=== PATIENT | female | born 1945 | race Caucasian/White ===

== ENCOUNTER 2017-11-21 08:50 | Inpatient (IN) | payer MEDICARE ==
[~2017-11-21] VITALS: Ht 160 cm; Wt 122.5 kg
[2017-11-21] MEDS: normal saline 1000ml 1,000 ML IV SCH ×2 (02:55→16:22)
[2017-11-21] MEDS ORDERED: normal saline 1000ML IV soln IV ONE (09:10)
[2017-11-21 09:59] LABS: BASOPHILS % (AUTO) 0.1 % (0-1); EOSINOPHILS % (AUTO) 0.1 % (0-6); HEMATOCRIT 40.3 % (35.0-45.0); HEMOGLOBIN 13.6 g/dl (12.0-16.0); LYMPHOCYTES # (AUTO) 1.2 X10'3 (1.1-4.8); LYMPHOCYTES % (AUTO) 4.7 % (21-51); MEAN CORPUSCULAR HEMOGLOBIN 26.3 PG (27.0-31.0); MEAN CORPUSCULAR HGB CONC 33.8 % (33.0-36.5); MEAN CORPUSCULAR VOLUME 77.8 FL (78-98); MEAN PLATELET VOLUME 7.5 FL (7.4-10.4); MONOCYTES # (AUTO) 1.3 X10'3 (0-0.9); MONOCYTES % (AUTO) 5.4 % (2-12); NEUTROPHILS # (AUTO) 22.2 X10'3 (1.8-7.7); NEUTROPHILS % (AUTO) 89.7 % (42-75); PLATELET COUNT 271 X10'3 (140-440); RED BLOOD COUNT 5.18 X10'6 (4.20-5.60); RED CELL DISTRIBUTION WIDTH 14.4 % (11.5-14.5); WHITE BLOOD COUNT 24.7 X10'3 (4.5-11.0)
[2017-11-21 10:11] LABS: PARTIAL THROMBOPLASTIN TIME 34 SECONDS (22-32); PROTHROMBIN TIME 10.8 SECONDS (9.0-12.0)
[2017-11-21 10:14] LABS: CLARITY,URINE SLIGHTLY CLOUDY (Clear); COLOR,URINE YELLOW (Yellow); GLUCOSE, URINE NEGATIVE (Neg); KETONES,URINE NEGATIVE (Neg); LEUKOCYTE ESTERASE ,URINE SMALL (Neg); NITRITES, URINE NEGATIVE (Neg); OCCULT BLOOD,URINE NEGATIVE (Neg); PH,URINE 5.5 (4.8-8.0); PROTEIN,URINE 30 mg/dl (Neg); UROBILINOGEN,URINE >=8.0 E.U/dL (0.2-1.0)
[2017-11-21 10:19] LABS: UA COLLECTION TYPE CLN CATCH MIDSTREAM
[2017-11-21 10:21] LABS: BACTERIA,URINE 1+ /HPF (Neg); MUCUS STRANDS FEW /LPF (Neg); RBC,URINE 0-2 /HPF (0-2); SQUAMOUS EPITHELIAL CELL,UR MANY /LPF (FEW)
[2017-11-21 10:24] LABS: ALANINE AMINOTRANSFERASE 16 U/L (12-78); ALBUMIN 2.8 G/DL (3.4-5.0); ALBUMIN/GLOBULIN RATIO 0.5 (1.1-1.5); ALKALINE PHOSPHATASE 85 IU/L (46-116); ANION GAP 10 (8-16); ASPARTATE AMINO TRANSFERASE 14 U/L (10-37); BLOOD UREA NITROGEN 17 MG/DL (7-18); BUN/CREATININE RATIO 15.3 (6.6-38.0); CALCIUM 8.9 MG/DL (8.5-10.1); CHLORIDE 96 MMOL/L (99-107); CREATININE 1.11 MG/DL (0.40-0.90); GLUCOSE 202 MG/DL (70-104); MAGNESIUM 1.5 MG/DL (1.5-2.4); POTASSIUM 4.1 MMOL/L (3.5-5.1); SODIUM 133 MMOL/L (135-145); TOTAL CARBON DIOXIDE 26.7 MMOL/L (24-32); eGFR 49 ML/MIN
[2017-11-21] MEDS ORDERED: cefazolin 1gm/NS 100mL 100 ML IV ONE (10:55)
[2017-11-21] MEDS ORDERED: clindamycin 600mg/D5W 50ml 50 ML IV ONE (10:55)
[2017-11-21] MEDS ORDERED: morphine 4 MG/ML inj SYRINge IV PRN (13:40)
[2017-11-21] MEDS ORDERED: ondansetron/PF 4mg/2ml inj IV PRN (13:40)
[2017-11-21] MEDS ORDERED: magnesium hydroxide 30ml (MOM) UD suspension PO PRN (13:40)
[2017-11-21] MEDS ORDERED: mag hydrox/Alum hydrox/simeth 30ml oral suspension PO PRN (13:40)
[2017-11-21 15:30] VITALS: BP_SYST 108; BP_SYST 98; BP_DIAS 52; BP_DIAS 57; BP_DIAS 64
[2017-11-21] MEDS: cefepime 2g/NS 100ml ADVANTAGE 100 ML IV SCH ×2 (16:22→23:58)
[2017-11-21] MEDS: metroNIDAZOLE 500mg tablet PO SCH ×2 (16:22→23:59)
[2017-11-21] MEDS ORDERED: dextrose 50%-water 50ml dispensing syringe IV PRN ×2 (18:25)
[2017-11-21] MEDS ORDERED: dextrose ORAL solution 15 GM/59 ML bottle PO PRN ×2 (18:25)
[2017-11-21] MEDS ORDERED: glucagon, human recombinant 1mg kit SUBCUT PRN (18:25)
[2017-11-21 19:00] VITALS: BP 121/50
[2017-11-21] MEDS: insulin glargine (Lantus) pen - multi-dose SQ SCH (21:00)
[2017-11-21] MEDS: lactobacillus rhamnosus 10,000 MMU CELLS/CAPSULE PO SCH (21:16)
[2017-11-21] MEDS: HYDROcodone/acetaminophen 5mg/325mg tablet PO PRN (21:18)
[2017-11-21] MEDS: heparin, porcine 5000 units/ml vial SQ SCH (21:19)
[2017-11-21] MEDS ORDERED: CITA20TA11 PO (22:51)
[2017-11-21] MEDS ORDERED: EZET10TA14 PO (22:51)
[2017-11-21] MEDS ORDERED: TRIA1TAB3 PO (22:51)
[2017-11-21] MEDS ORDERED: ALBU8.5H8 INH (22:51)
[2017-11-21] MEDS ORDERED: LANTUS SQ (22:51)
[2017-11-21] MEDS ORDERED: PHEN15SP INH (22:51)
[2017-11-21] MEDS ORDERED: LANS15CA10 PO (22:51)
[2017-11-21] MEDS ORDERED: BENA40TA2 PO (22:51)
[2017-11-21] MEDS ORDERED: METF500T PO (22:51)
[2017-11-21] MEDS ORDERED: ASPI81TA52 PO (22:51)
[2017-11-22] VITALS: BP 107/54
[2017-11-22 05:41] LABS: BASOPHILS % (AUTO) 0.1 % (0-1); EOSINOPHILS # (AUTO) 0.3 X10'3 (0-0.9); EOSINOPHILS % (AUTO) 1.5 % (0-6); HEMATOCRIT 36.2 % (35.0-45.0); LYMPHOCYTES # (AUTO) 1.6 X10'3 (1.1-4.8); LYMPHOCYTES % (AUTO) 6.9 % (21-51); MEAN CORPUSCULAR HEMOGLOBIN 26.5 PG (27.0-31.0); MEAN CORPUSCULAR HGB CONC 33.3 % (33.0-36.5); MEAN CORPUSCULAR VOLUME 79.5 FL (78-98); MEAN PLATELET VOLUME 7.5 FL (7.4-10.4); MONOCYTES # (AUTO) 1.2 X10'3 (0-0.9); MONOCYTES % (AUTO) 5.3 % (2-12); NEUTROPHILS # (AUTO) 20.1 X10'3 (1.8-7.7); NEUTROPHILS % (AUTO) 86.2 % (42-75); PLATELET COUNT 229 X10'3 (140-440); RED BLOOD COUNT 4.55 X10'6 (4.20-5.60); RED CELL DISTRIBUTION WIDTH 14.2 % (11.5-14.5); WHITE BLOOD COUNT 23.3 X10'3 (4.5-11.0)
[2017-11-22 05:54] LABS: ALBUMIN 2.1 G/DL (3.4-5.0); ANION GAP 11 (8-16); BLOOD UREA NITROGEN 16 MG/DL (7-18); BUN/CREATININE RATIO 17.2 (6.6-38.0); CALCIUM 7.7 MG/DL (8.5-10.1); CHLORIDE 102 MMOL/L (99-107); CREATININE 0.93 MG/DL (0.40-0.90); GLUCOSE 96 MG/DL (70-104); POTASSIUM 3.8 MMOL/L (3.5-5.1); SODIUM 138 MMOL/L (135-145); TOTAL CARBON DIOXIDE 25.4 MMOL/L (24-32); eGFR 60 ML/MIN
[2017-11-22 06:45] LABS: HEMOGLOBIN A1C 7.8 % (4.5-6.2)
[2017-11-22 07:33] VITALS: BP 111/55
[2017-11-22] MEDS: lactobacillus rhamnosus 10,000 MMU CELLS/CAPSULE PO SCH ×2 (09:11→21:48)
[2017-11-22] MEDS: metroNIDAZOLE 500mg tablet PO SCH ×3 (09:11→23:55)
[2017-11-22] MEDS: heparin, porcine 5000 units/ml vial SQ SCH ×2 (09:12→21:48)
[2017-11-22] MEDS: cefepime 2g/NS 100ml ADVANTAGE 100 ML IV SCH ×3 (09:12→23:55)
[2017-11-22] MEDS: normal saline 1000ml 1,000 ML IV SCH (09:39)
[2017-11-22 11:30] VITALS: BP 106/57
[2017-11-22] MEDS: HYDROcodone/acetaminophen 5mg/325mg tablet PO PRN (16:36)
[2017-11-22 19:00] VITALS: BP 108/54
[2017-11-22] MEDS: acetaminophen 325mg tablet PO PRN (19:40)
[2017-11-22] MEDS: insulin glargine (Lantus) pen - multi-dose SQ SCH (21:58)
[2017-11-22 23:00] VITALS: BP 119/61
[2017-11-23] VITALS (9 sets, daily range): BP systolic 83–214; BP diastolic 45–125
[2017-11-23] MEDS ORDERED: VANCOMYCIN LEVEL IV ONE (04:30)
[2017-11-23 05:36] LABS: BASOPHILS % (AUTO) 0.2 % (0-1); EOSINOPHILS % (AUTO) 0 % (0-6); HEMOGLOBIN 11.6 g/dl (12.0-16.0); LYMPHOCYTES % (AUTO) 4.1 % (21-51); MEAN CORPUSCULAR HEMOGLOBIN 26.5 PG (27.0-31.0); MEAN CORPUSCULAR HGB CONC 33.3 % (33.0-36.5); MEAN CORPUSCULAR VOLUME 79.8 FL (78-98); MEAN PLATELET VOLUME 7.7 FL (7.4-10.4); MONOCYTES # (AUTO) 1.2 X10'3 (0-0.9); MONOCYTES % (AUTO) 4.8 % (2-12); NEUTROPHILS # (AUTO) 22.1 X10'3 (1.8-7.7); NEUTROPHILS % (AUTO) 90.9 % (42-75); PLATELET COUNT 250 X10'3 (140-440); RED BLOOD COUNT 4.38 X10'6 (4.20-5.60); WHITE BLOOD COUNT 24.3 X10'3 (4.5-11.0)
[2017-11-23 05:50] LABS: ANION GAP 11 (8-16); BLOOD UREA NITROGEN 19 MG/DL (7-18); BUN/CREATININE RATIO 18.4 (6.6-38.0); CALCIUM 7.9 MG/DL (8.5-10.1); CHLORIDE 102 MMOL/L (99-107); CREATININE 1.03 MG/DL (0.40-0.90); GLUCOSE 186 MG/DL (70-104); POTASSIUM 3.7 MMOL/L (3.5-5.1); SODIUM 135 MMOL/L (135-145); TOTAL CARBON DIOXIDE 22.5 MMOL/L (24-32); VANCOMYCIN,TROUGH 12.8 UG/ML (6.0-14.0); eGFR 53 ML/MIN
[2017-11-23] MEDS: lactobacillus rhamnosus 10,000 MMU CELLS/CAPSULE PO SCH ×2 (07:43→19:27)
[2017-11-23] MEDS: heparin, porcine 5000 units/ml vial SQ SCH ×2 (07:43→19:39)
[2017-11-23] MEDS: cefepime 2g/NS 100ml ADVANTAGE 100 ML IV SCH ×2 (07:43→16:52)
[2017-11-23] MEDS: metroNIDAZOLE 500mg tablet PO SCH ×2 (07:43→16:52)
[2017-11-23] MEDS: insulin Lispro (HumaLOG) vial - multi-dose SQ SCH ×3 (08:49→19:30)
[2017-11-23] MEDS ORDERED: albuterol 2.5 MG/3 ML nebule NEB PRN (11:35)
[2017-11-23] MEDS ORDERED: TETanus/Pertussis (Acell)/Diphther VAC/PF (Tdap-Adult) 0.5ml syringe IMVAC ONE (11:55)
[2017-11-23] MEDS: citalopram 20mg tablet PO SCH (12:44)
[2017-11-23] MEDS ORDERED: iohexol 300mg/ml 100ml inj. ONE (12:46)
[2017-11-23] MEDS: vancomycin/NS 1 GM ADD-VANTAGE 250 ML X 1 DOSE IV SCH ×2 (13:18→20:57)
[2017-11-23] MEDS: sodium bicarbonate (8.4%) inj. 100 MEQ in sodium chloride 0.45% 900 ML IV SCH (16:52)
[2017-11-23] MEDS: acetylcysteine 200 MG/ml 4ml vial PO SCH (19:27)
[2017-11-23] MEDS: lisinopril 20mg tablet PO SCH (19:36)
[2017-11-23] MEDS ORDERED: insulin glargine (Lantus) pen - multi-dose SQ SCH (20:00)
[2017-11-23] MEDS ORDERED: ringers solution, lacted 1,000 ML IV SCH (20:38)
[2017-11-23] MEDS ORDERED: ondansetron/PF 4mg/2ml inj IV PRN (20:40)
[2017-11-23] MEDS ORDERED: morphine 4 MG/ML inj SYRINge IV PRN ×2 (20:40)
[2017-11-23] MEDS ORDERED: fentaNYL/PF 50MCG/1 ML 2ML syringe IV PRN ×2 (20:40)
[2017-11-23] MEDS ORDERED: hydrALAZINE 20mg/ml inj. IV PRN (20:40)
[2017-11-23] MEDS: aspirin 81mg tablet.DR PO SCH (21:00)
[2017-11-23] MEDS: insulin glargine (Lantus) pen - multi-dose SQ SCH (21:09)
[2017-11-23] MEDS ORDERED: LIDOcaine 2% (20mg/ml) 5ml vial ONE (21:17)
[2017-11-23] MEDS ORDERED: propofol inj 20 ML IV ONE (21:17)
[2017-11-23] MEDS ORDERED: fentaNYL/PF 50MCG/1 ML 2ML syringe ONE (21:17)
[2017-11-23] MEDS ORDERED: midazolam 2 mg/2 ml injection ONE (21:17)
[2017-11-23] MEDS ORDERED: ondansetron/PF 4mg/2ml inj ONE (21:18)
[2017-11-23] MEDS ORDERED: sevoflurane 250ml liquid IH ONE (21:20)
[2017-11-23] MEDS ORDERED: succinylcholine 20mg/ml inj IV ONE (21:27)
[2017-11-23] MEDS ORDERED: glycopyrrolate 0.2mg/ml inj ONE (22:42)
[2017-11-23] MEDS ORDERED: naloxone 0.4 mg/ml inj IV PRN (22:55)
[2017-11-23] MEDS ORDERED: CADD PCA waste documentation MC PRN (22:55)
[2017-11-23] MEDS ORDERED: metoclopramide 5 mg/ml inj IV PRN (22:55)
[2017-11-23] MEDS: morphine/NS 5 mg/ml CADD 50 ML IV SCH (23:00)
[2017-11-23] MEDS ORDERED: naloxone 0.4 mg/ml inj ONE (23:10)
[2017-11-23] MEDS: labetalol 5mg/ml 20ml inj. IV PRN ×2 (23:10→23:25)
[2017-11-23 23:20] LABS: ABG BASE EXCESS -8.6 mmol/L (-2.0-3.0); ABG HCO3 20.7 mmol/L (22.0-26.0); ABG OXYGEN SATURATION 97.8 % (95-98); ABG PH (T) 7.155 (7.350-7.450); ABG PO2 (T) 141.4 mmHg (83-108); FCOHb 0.2 % (0.5-1.5); FLOW 15 L/min; FMetHb 0.3 % (0.3-1.12); FO2Hb 97.3 % (94-100); RESPIRATORY RATE (OBSERVED) 26 b/min; TOTAL HEMOGLOBIN 12.7 G/dl (12.0-16.0)
[2017-11-24] VITALS (24 sets, daily range): BP systolic 89–119; BP diastolic 54–71
[2017-11-24] MEDS: morphine/NS 5 mg/ml CADD 50 ML IV SCH ×11 (01:00→23:00)
[2017-11-24] MEDS ORDERED: amiodarone/D5 360MG/200ML BAG 200 ML IV SCH (01:18)
[2017-11-24] MEDS ORDERED: amiodarone 150mg/dext, iso-os 100 ML IV ONE ×3 (01:20→01:42)
[2017-11-24] MEDS ORDERED: piperacillin/tazo 3.375gm/50ml 50 ML IV ONE (01:39)
[2017-11-24] MEDS ORDERED: amiodarone/D5 450MG/250ML BAG 250 ML IV ONE (01:42)
[2017-11-24] MEDS: sodium bicarbonate (8.4%) inj. 100 MEQ in sodium chloride 0.45% 900 ML IV SCH ×5 (01:52→13:39)
[2017-11-24] MEDS: metroNIDAZOLE 500mg tablet PO SCH ×3 (01:52→15:50)
[2017-11-24] MEDS: piperacillin/tazo 3.375gm/50ml 50 ML IV SCH ×4 (01:53→19:53)
[2017-11-24 02:27] LABS: ALBUMIN 1.8 G/DL (3.4-5.0); ANION GAP 13 (8-16); BLOOD UREA NITROGEN 20 MG/DL (7-18); CALCIUM 7.7 MG/DL (8.5-10.1); CHLORIDE 102 MMOL/L (99-107); CREATININE 1.05 MG/DL (0.40-0.90); GLUCOSE 202 MG/DL (70-104); MAGNESIUM 1.6 MG/DL (1.5-2.4); PHOSPHORUS 3.2 MG/DL (2.3-4.5); POTASSIUM 3.9 MMOL/L (3.5-5.1); SODIUM 136 MMOL/L (135-145); TOTAL CARBON DIOXIDE 21.5 MMOL/L (24-32); eGFR 52 ML/MIN
[2017-11-24] MEDS: amiodarone/D5 450MG/250ML BAG 250 ML IV SCH ×2 (02:52→12:59)
[2017-11-24 02:57] LABS: BASOPHILS % (AUTO) 0.2 % (0-1); EOSINOPHILS % (AUTO) 0 % (0-6); HEMATOCRIT 34.3 % (35.0-45.0); HEMOGLOBIN 11.4 g/dl (12.0-16.0); LYMPHOCYTES # (AUTO) 1.2 X10'3 (1.1-4.8); LYMPHOCYTES % (AUTO) 5.4 % (21-51); MEAN CORPUSCULAR HEMOGLOBIN 26.2 PG (27.0-31.0); MEAN CORPUSCULAR HGB CONC 33.1 % (33.0-36.5); MEAN CORPUSCULAR VOLUME 79.2 FL (78-98); MEAN PLATELET VOLUME 8.1 FL (7.4-10.4); MONOCYTES # (AUTO) 1.2 X10'3 (0-0.9); MONOCYTES % (AUTO) 5.8 % (2-12); NEUTROPHILS % (AUTO) 88.6 % (42-75); PLATELET COUNT 275 X10'3 (140-440); RED BLOOD COUNT 4.34 X10'6 (4.20-5.60); RED CELL DISTRIBUTION WIDTH 14.2 % (11.5-14.5); WHITE BLOOD COUNT 21.4 X10'3 (4.5-11.0)
[2017-11-24] MEDS: vancomycin/NS 1 GM ADD-VANTAGE 250 ML X 1 DOSE IV SCH ×3 (05:10→21:29)
[2017-11-24] MEDS: triamterene/HCTZ 37.5/25mg tablet PO SCH (07:52)
[2017-11-24] MEDS: lactobacillus rhamnosus 10,000 MMU CELLS/CAPSULE PO SCH ×2 (07:52→19:50)
[2017-11-24] MEDS: citalopram 20mg tablet PO SCH (07:52)
[2017-11-24] MEDS: acetylcysteine 200 MG/ml 4ml vial PO SCH ×2 (07:52→21:27)
[2017-11-24] MEDS: ezetimibe 10mg tablet PO SCH (07:52)
[2017-11-24] MEDS: heparin, porcine 5000 units/ml vial SQ SCH ×2 (07:52→19:52)
[2017-11-24] MEDS: lisinopril 20mg tablet PO SCH ×2 (08:00→19:50)
[2017-11-24 09:06] LABS: PLATELET ESTIMATE NORMAL; TOTAL CELLS COUNTED 100
[2017-11-24 09:07] LABS: TOXIC VACUOLATION 1+
[2017-11-24 09:08] LABS: BURR CELLS 3+; POIKILOCYTOSIS 2+; POLYCHROMASIA FEW
[2017-11-24 09:10] LABS: SPHEROCYTES 1+
[2017-11-24] MEDS: acetaminophen 325mg tablet PO PRN ×2 (09:23→23:35)
[2017-11-24] MEDS ORDERED: iohexol 350MG/ML 100ml bottle IV ONE (11:10)
[2017-11-24] MEDS: MESSAGE TO NURSING PO SCH (11:30)
[2017-11-24] MEDS ORDERED: VANCOMYCIN LEVEL IV NR (12:30)
[2017-11-24] MEDS: insulin Lispro (HumaLOG) vial - multi-dose SQ SCH ×2 (13:52→20:04)
[2017-11-24] MEDS: clindamycin-Cleocin 900mg/D5W 50 ML IV SCH ×2 (15:50→23:36)
[2017-11-24] MEDS: Dakins solution (1/4 strength) 473ml solution TP SCH (19:50)
[2017-11-24] MEDS: insulin glargine (Lantus) pen - multi-dose SQ SCH (21:25)
[2017-11-24] MEDS: aspirin 81mg tablet.DR PO SCH (21:29)
[2017-11-25] VITALS (28 sets, daily range): BP systolic 83–119; BP diastolic 52–70
[2017-11-25] MEDS: morphine/NS 5 mg/ml CADD 50 ML IV SCH ×12 (01:00→23:00)
[2017-11-25] MEDS: sodium bicarbonate (8.4%) inj. 100 MEQ in sodium chloride 0.45% 900 ML IV SCH (01:04)
[2017-11-25] MEDS: piperacillin/tazo 3.375gm/50ml 50 ML IV SCH ×4 (02:02→20:21)
[2017-11-25] MEDS: amiodarone/D5 450MG/250ML BAG 250 ML IV SCH (02:34)
[2017-11-25] MEDS: vancomycin/NS 1 GM ADD-VANTAGE 250 ML X 1 DOSE IV SCH ×3 (04:55→21:40)
[2017-11-25 05:11] LABS: BASOPHILS % (AUTO) 0.2 % (0-1); EOSINOPHILS # (AUTO) 0.1 X10'3 (0-0.9); EOSINOPHILS % (AUTO) 0.9 % (0-6); HEMATOCRIT 30.6 % (35.0-45.0); HEMOGLOBIN 10.2 g/dl (12.0-16.0); LYMPHOCYTES # (AUTO) 2.3 X10'3 (1.1-4.8); LYMPHOCYTES % (AUTO) 13.6 % (21-51); MEAN CORPUSCULAR HGB CONC 33.2 % (33.0-36.5); MEAN CORPUSCULAR VOLUME 78.2 FL (78-98); MEAN PLATELET VOLUME 7.8 FL (7.4-10.4); MONOCYTES # (AUTO) 1.2 X10'3 (0-0.9); MONOCYTES % (AUTO) 7.3 % (2-12); PLATELET COUNT 303 X10'3 (140-440); RED BLOOD COUNT 3.91 X10'6 (4.20-5.60); RED CELL DISTRIBUTION WIDTH 14.3 % (11.5-14.5); WHITE BLOOD COUNT 16.6 X10'3 (4.5-11.0)
[2017-11-25 05:46] LABS: ALBUMIN 1.6 G/DL (3.4-5.0); ANION GAP 10 (8-16); BLOOD UREA NITROGEN 19 MG/DL (7-18); BUN/CREATININE RATIO 18.8 (6.6-38.0); CALCIUM 7.6 MG/DL (8.5-10.1); CHLORIDE 102 MMOL/L (99-107); CREATININE 1.01 MG/DL (0.40-0.90); GLUCOSE 158 MG/DL (70-104); POTASSIUM 3.2 MMOL/L (3.5-5.1); SODIUM 139 MMOL/L (135-145); TOTAL CARBON DIOXIDE 26.9 MMOL/L (24-32); eGFR 54 ML/MIN
[2017-11-25] MEDS: triamterene/HCTZ 37.5/25mg tablet PO SCH (08:00)
[2017-11-25] MEDS: heparin, porcine 5000 units/ml vial SQ SCH ×2 (08:00→20:21)
[2017-11-25] MEDS: acetylcysteine 200 MG/ml 4ml vial PO SCH ×2 (08:00→20:52)
[2017-11-25] MEDS: Dakins solution (1/4 strength) 473ml solution TP SCH ×2 (08:00→20:22)
[2017-11-25] MEDS: clindamycin-Cleocin 900mg/D5W 50 ML IV SCH ×3 (08:26→23:38)
[2017-11-25] MEDS: insulin Lispro (HumaLOG) vial - multi-dose SQ SCH ×2 (08:31→15:00)
[2017-11-25] MEDS ORDERED: ringers solution, lacted 1,000 ML IV SCH (09:14)
[2017-11-25] MEDS ORDERED: meperidine/PF 50mg/ml syringe IV PRN ×3 (09:15)
[2017-11-25] MEDS ORDERED: morphine 4 MG/ML inj SYRINge IV PRN ×2 (09:15)
[2017-11-25] MEDS ORDERED: proCHLORperazine 10 MG/2 ml inj IV PRN (09:15)
[2017-11-25] MEDS ORDERED: ondansetron/PF 4mg/2ml inj IV PRN (09:15)
[2017-11-25] MEDS ORDERED: desflurane 240ml liquid inh. IH ONE (11:10)
[2017-11-25] MEDS ORDERED: fentaNYL /PF 50mcg/ml 5ml ampule ONE (11:17)
[2017-11-25] MEDS ORDERED: midazolam 2 mg/2 ml injection ONE (11:17)
[2017-11-25] MEDS ORDERED: LIDOcaine 1%/PF (10mg/ml) 5ml vial ONE (11:22)
[2017-11-25] MEDS ORDERED: propofol inj 20 ML IV ONE (11:23)
[2017-11-25] MEDS: MESSAGE TO NURSING PO SCH (11:30)
[2017-11-25] MEDS ORDERED: ipratropium/albuterol 3ml nebule ONE (12:48)
[2017-11-25] MEDS ORDERED: propofol 1000mg/100ml bottle 100 ML IV SCH (13:00)
[2017-11-25 13:11] LABS: ABG BASE EXCESS 0.1 mmol/L (-2.0-3.0); ABG HCO3 25.3 mmol/L (22.0-26.0); ABG OXYGEN SATURATION 97.9 % (95-98); ABG PCO2 (T) 43.8 mmHg (32.0-45.0); ALLEN'S TEST Positive; FCOHb 0.3 % (0.5-1.5); FMetHb 0.1 % (0.3-1.12); FO2Hb 97.5 % (94-100); PEEP 5 cm H2O; RESPIRATORY RATE 14 b/min; TIDAL VOLUME 500 mL; TOTAL HEMOGLOBIN 10.9 G/dl (12.0-16.0)
[2017-11-25] MEDS: citalopram 20mg tablet PO SCH (16:45)
[2017-11-25] MEDS: ezetimibe 10mg tablet PO SCH (16:46)
[2017-11-25] MEDS: lactobacillus rhamnosus 10,000 MMU CELLS/CAPSULE PO SCH ×2 (16:46→20:20)
[2017-11-25] MEDS: amiodarone 200mg tablet PO SCH (20:20)
[2017-11-25] MEDS: aspirin 81mg tablet.DR PO SCH (20:20)
[2017-11-25] MEDS: insulin glargine (Lantus) pen - multi-dose SQ SCH (21:34)
[2017-11-25] MEDS ORDERED: K, MAG and/or Phos replacement - Verify level? MC SCH (23:10)
[2017-11-25] MEDS ORDERED: potassium Cl 20 mEq SR tablet PO PRN ×3 (23:10→23:15)
[2017-11-25] MEDS ORDERED: potassium Cl 40MEQ/NS 500ml 500 ML IV PRN ×2 (23:15)
[2017-11-25] MEDS: potassium Cl 20 mEq SR tablet PO PRN (23:38)
[2017-11-26] VITALS (24 sets, daily range): BP systolic 100–128; BP diastolic 60–71
[2017-11-26] MEDS: morphine/NS 5 mg/ml CADD 50 ML IV SCH ×8 (01:00→14:12)
[2017-11-26] MEDS: piperacillin/tazo 3.375gm/50ml 50 ML IV SCH ×5 (01:24→19:44)
[2017-11-26] MEDS: potassium Cl 20 mEq SR tablet PO PRN ×2 (03:47→07:47)
[2017-11-26] MEDS: vancomycin/NS 1 GM ADD-VANTAGE 250 ML X 1 DOSE IV SCH ×3 (04:41→21:13)
[2017-11-26 05:57] LABS: BASOPHILS % (AUTO) 0.3 % (0-1); EOSINOPHILS # (AUTO) 0.1 X10'3 (0-0.9); EOSINOPHILS % (AUTO) 0.7 % (0-6); HEMATOCRIT 32.4 % (35.0-45.0); HEMOGLOBIN 10.8 g/dl (12.0-16.0); LYMPHOCYTES # (AUTO) 2.4 X10'3 (1.1-4.8); LYMPHOCYTES % (AUTO) 16.2 % (21-51); MEAN CORPUSCULAR HEMOGLOBIN 26.2 PG (27.0-31.0); MEAN CORPUSCULAR HGB CONC 33.3 % (33.0-36.5); MEAN CORPUSCULAR VOLUME 78.7 FL (78-98); MEAN PLATELET VOLUME 7.6 FL (7.4-10.4); MONOCYTES # (AUTO) 1.2 X10'3 (0-0.9); NEUTROPHILS # (AUTO) 11.3 X10'3 (1.8-7.7); NEUTROPHILS % (AUTO) 74.8 % (42-75); PLATELET COUNT 329 X10'3 (140-440); RED BLOOD COUNT 4.11 X10'6 (4.20-5.60); RED CELL DISTRIBUTION WIDTH 13.8 % (11.5-14.5); WHITE BLOOD COUNT 15.1 X10'3 (4.5-11.0)
[2017-11-26 06:15] LABS: ALBUMIN 1.8 G/DL (3.4-5.0); ANION GAP 10 (8-16); BLOOD UREA NITROGEN 18 MG/DL (7-18); BUN/CREATININE RATIO 19.1 (6.6-38.0); CALCIUM 7.8 MG/DL (8.5-10.1); CHLORIDE 103 MMOL/L (99-107); CREATININE 0.94 MG/DL (0.40-0.90); GLUCOSE 130 MG/DL (70-104); MAGNESIUM 1.7 MG/DL (1.5-2.4); POTASSIUM 3.4 MMOL/L (3.5-5.1); SODIUM 141 MMOL/L (135-145); TOTAL CARBON DIOXIDE 28.5 MMOL/L (24-32); eGFR 59 ML/MIN
[2017-11-26] MEDS: clindamycin-Cleocin 900mg/D5W 50 ML IV SCH ×2 (07:43→15:38)
[2017-11-26] MEDS: ezetimibe 10mg tablet PO SCH (07:47)
[2017-11-26] MEDS: amiodarone 200mg tablet PO SCH ×2 (07:47→19:44)
[2017-11-26] MEDS: triamterene/HCTZ 37.5/25mg tablet PO SCH (07:47)
[2017-11-26] MEDS: lisinopril 20mg tablet PO SCH (07:47)
[2017-11-26] MEDS: citalopram 20mg tablet PO SCH (07:47)
[2017-11-26] MEDS: acetylcysteine 200 MG/ml 4ml vial PO SCH (07:52)
[2017-11-26] MEDS: heparin, porcine 5000 units/ml vial SQ SCH ×2 (07:53→19:44)
[2017-11-26] MEDS: lactobacillus rhamnosus 10,000 MMU CELLS/CAPSULE PO SCH ×2 (07:54→19:44)
[2017-11-26] MEDS: Dakins solution (1/4 strength) 473ml solution TP SCH ×2 (07:54→20:00)
[2017-11-26] MEDS: acetaminophen 325mg tablet PO PRN (12:56)
[2017-11-26 13:59] LABS: ALBUMIN 1.7 G/DL (3.4-5.0); ANION GAP 8 (8-16); BLOOD UREA NITROGEN 17 MG/DL (7-18); BUN/CREATININE RATIO 18.3 (6.6-38.0); CALCIUM 7.5 MG/DL (8.5-10.1); CHLORIDE 103 MMOL/L (99-107); CREATININE 0.93 MG/DL (0.40-0.90); GLUCOSE 173 MG/DL (70-104); POTASSIUM 3.8 MMOL/L (3.5-5.1); SODIUM 139 MMOL/L (135-145); TOTAL CARBON DIOXIDE 28.3 MMOL/L (24-32); eGFR 60 ML/MIN
[2017-11-26] MEDS: insulin Lispro (HumaLOG) vial - multi-dose SQ SCH (14:37)
[2017-11-26] MEDS: insulin glargine (Lantus) pen - multi-dose SQ SCH (21:00)
[2017-11-26] MEDS: aspirin 81mg tablet.DR PO SCH (21:13)
[2017-11-27] VITALS (20 sets, daily range): BP systolic 113–144; BP diastolic 59–86
[2017-11-27] MEDS: clindamycin-Cleocin 900mg/D5W 50 ML IV SCH ×3 (00:11→16:55)
[2017-11-27] MEDS: piperacillin/tazo 3.375gm/50ml 50 ML IV SCH ×4 (01:42→20:09)
[2017-11-27] MEDS: vancomycin/NS 1 GM ADD-VANTAGE 250 ML X 1 DOSE IV SCH ×3 (05:00→21:22)
[2017-11-27 06:52] LABS: MAGNESIUM 1.7 MG/DL (1.5-2.4); POTASSIUM 3.7 MMOL/L (3.5-5.1)
[2017-11-27] MEDS: morphine/NS 5 mg/ml CADD 50 ML IV SCH ×9 (07:00→16:03)
[2017-11-27] MEDS: acetaminophen 325mg tablet PO PRN (08:45)
[2017-11-27] MEDS: lisinopril 20mg tablet PO SCH (08:45)
[2017-11-27] MEDS: lactobacillus rhamnosus 10,000 MMU CELLS/CAPSULE PO SCH ×2 (08:46→20:09)
[2017-11-27] MEDS: ezetimibe 10mg tablet PO SCH (08:46)
[2017-11-27] MEDS: amiodarone 200mg tablet PO SCH ×2 (08:47→20:09)
[2017-11-27] MEDS: citalopram 20mg tablet PO SCH (08:48)
[2017-11-27] MEDS: triamterene/HCTZ 37.5/25mg tablet PO SCH (08:48)
[2017-11-27] MEDS: heparin, porcine 5000 units/ml vial SQ SCH ×2 (08:49→20:09)
[2017-11-27] MEDS: insulin Lispro (HumaLOG) vial - multi-dose SQ SCH ×2 (09:06→20:07)
[2017-11-27] MEDS: Dakins solution (1/4 strength) 473ml solution TP SCH ×2 (13:29→20:09)
[2017-11-27] MEDS ORDERED: HYDROcodone/acetaminophen 5mg/325mg tablet PO PRN (17:15)
[2017-11-27] MEDS: aspirin 81mg tablet.DR PO SCH (21:21)
[2017-11-27] MEDS: insulin glargine (Lantus) pen - multi-dose SQ SCH (21:26)
[2017-11-28] MEDS: clindamycin-Cleocin 900mg/D5W 50 ML IV SCH ×3 (01:01→16:37)
[2017-11-28] MEDS: piperacillin/tazo 3.375gm/50ml 50 ML IV SCH ×4 (01:50→21:53)
[2017-11-28] MEDS: vancomycin/NS 1 GM ADD-VANTAGE 250 ML X 1 DOSE IV SCH ×3 (04:30→21:59)
[2017-11-28 06:23] LABS: MAGNESIUM 1.6 MG/DL (1.5-2.4); POTASSIUM 3.5 MMOL/L (3.5-5.1)
[2017-11-28 07:00] VITALS: BP 132/74
[2017-11-28] MEDS: lactobacillus rhamnosus 10,000 MMU CELLS/CAPSULE PO SCH ×2 (08:26→21:53)
[2017-11-28] MEDS: amiodarone 200mg tablet PO SCH ×2 (08:26→21:54)
[2017-11-28] MEDS: citalopram 20mg tablet PO SCH (08:26)
[2017-11-28] MEDS: heparin, porcine 5000 units/ml vial SQ SCH (08:26)
[2017-11-28] MEDS: lisinopril 20mg tablet PO SCH (08:26)
[2017-11-28] MEDS: insulin Lispro (HumaLOG) vial - multi-dose SQ SCH ×3 (09:23→19:37)
[2017-11-28 12:13] VITALS: BP 134/72
[2017-11-28 16:00] LABS: BASOPHILS % (AUTO) 0.1 % (0-1); EOSINOPHILS # (AUTO) 0.2 X10'3 (0-0.9); HEMATOCRIT 31.6 % (35.0-45.0); HEMOGLOBIN 10.6 g/dl (12.0-16.0); LYMPHOCYTES # (AUTO) 1.9 X10'3 (1.1-4.8); LYMPHOCYTES % (AUTO) 10.3 % (21-51); MEAN CORPUSCULAR HGB CONC 33.7 % (33.0-36.5); MEAN CORPUSCULAR VOLUME 77.2 FL (78-98); MONOCYTES # (AUTO) 0.1 X10'3 (0-0.9); MONOCYTES % (AUTO) 0.4 % (2-12); NEUTROPHILS # (AUTO) 16.6 X10'3 (1.8-7.7); NEUTROPHILS % (AUTO) 88.2 % (42-75); PLATELET COUNT 406 X10'3 (140-440); RED BLOOD COUNT 4.09 X10'6 (4.20-5.60); RED CELL DISTRIBUTION WIDTH 14.1 % (11.5-14.5); WHITE BLOOD COUNT 18.8 X10'3 (4.5-11.0)
[2017-11-28 16:16] LABS: ALANINE AMINOTRANSFERASE 17 U/L (12-78); ALBUMIN 1.8 G/DL (3.4-5.0); ALBUMIN/GLOBULIN RATIO 0.4 (1.1-1.5); ALKALINE PHOSPHATASE 77 IU/L (46-116); ANION GAP 7 (8-16); ASPARTATE AMINO TRANSFERASE 18 U/L (10-37); BILIRUBIN,TOTAL 0.3 MG/DL (0.1-1.0); BLOOD UREA NITROGEN 13 MG/DL (7-18); BUN/CREATININE RATIO 12.9 (6.6-38.0); CALCIUM 7.9 MG/DL (8.5-10.1); CHLORIDE 103 MMOL/L (99-107); CREATININE 1.01 MG/DL (0.40-0.90); GLUCOSE 148 MG/DL (70-104); POTASSIUM 3.7 MMOL/L (3.5-5.1); SODIUM 138 MMOL/L (135-145); TOTAL CARBON DIOXIDE 27.7 MMOL/L (24-32); TOTAL PROTEIN 6.5 G/DL (6.4-8.2); eGFR 54 ML/MIN
[2017-11-28] MEDS: triamterene/HCTZ 37.5/25mg tablet PO SCH (16:17)
[2017-11-28] MEDS: ezetimibe 10mg tablet PO SCH (16:18)
[2017-11-28] MEDS: Dakins solution (1/4 strength) 473ml solution TP SCH ×2 (16:18→20:00)
[2017-11-28 19:00] VITALS: BP 126/65
[2017-11-28] MEDS ORDERED: enoxaparin 100mg/ml syringe SUBCUT SCH (20:00)
[2017-11-28] MEDS: multivitamins, therapeutics tablet PO SCH (21:53)
[2017-11-28] MEDS: aspirin 81mg tablet.DR PO SCH (21:54)
[2017-11-28] MEDS: insulin glargine (Lantus) pen - multi-dose SQ SCH (22:03)
[2017-11-29] VITALS: BP 138/79
[2017-11-29] MEDS: clindamycin-Cleocin 900mg/D5W 50 ML IV SCH ×2 (00:07→07:29)
[2017-11-29] MEDS: piperacillin/tazo 3.375gm/50ml 50 ML IV SCH ×4 (02:32→21:36)
[2017-11-29] MEDS: vancomycin/NS 1 GM ADD-VANTAGE 250 ML X 1 DOSE IV SCH ×3 (04:34→21:38)
[2017-11-29 05:35] LABS: BASOPHILS # (AUTO) 0.1 X10'3 (0-0.2); BASOPHILS % (AUTO) 0.3 % (0-1); EOSINOPHILS # (AUTO) 0.3 X10'3 (0-0.9); EOSINOPHILS % (AUTO) 1.5 % (0-6); HEMATOCRIT 31.2 % (35.0-45.0); HEMOGLOBIN 10.5 g/dl (12.0-16.0); LYMPHOCYTES # (AUTO) 2.5 X10'3 (1.1-4.8); LYMPHOCYTES % (AUTO) 13.8 % (21-51); MEAN CORPUSCULAR HEMOGLOBIN 26.5 PG (27.0-31.0); MEAN CORPUSCULAR HGB CONC 33.5 % (33.0-36.5); MEAN CORPUSCULAR VOLUME 78.9 FL (78-98); MEAN PLATELET VOLUME 7.3 FL (7.4-10.4); MONOCYTES # (AUTO) 0.9 X10'3 (0-0.9); MONOCYTES % (AUTO) 5.1 % (2-12); NEUTROPHILS # (AUTO) 14.3 X10'3 (1.8-7.7); NEUTROPHILS % (AUTO) 79.3 % (42-75); PLATELET COUNT 391 X10'3 (140-440); RED BLOOD COUNT 3.95 X10'6 (4.20-5.60); RED CELL DISTRIBUTION WIDTH 14.7 % (11.5-14.5)
[2017-11-29 05:59] LABS: ALANINE AMINOTRANSFERASE 16 U/L (12-78); ALBUMIN 1.8 G/DL (3.4-5.0); ALBUMIN/GLOBULIN RATIO 0.4 (1.1-1.5); ALKALINE PHOSPHATASE 63 IU/L (46-116); ANION GAP 9 (8-16); ASPARTATE AMINO TRANSFERASE 14 U/L (10-37); BILIRUBIN,TOTAL 0.3 MG/DL (0.1-1.0); BLOOD UREA NITROGEN 11 MG/DL (7-18); BUN/CREATININE RATIO 12.2 (6.6-38.0); CHLORIDE 104 MMOL/L (99-107); GLUCOSE 122 MG/DL (70-104); MAGNESIUM 1.7 MG/DL (1.5-2.4); POTASSIUM 3.7 MMOL/L (3.5-5.1); SODIUM 140 MMOL/L (135-145); TOTAL PROTEIN 6.3 G/DL (6.4-8.2); eGFR 62 ML/MIN
[2017-11-29 07:01] VITALS: BP 132/75
[2017-11-29] MEDS: citalopram 20mg tablet PO SCH (07:29)
[2017-11-29] MEDS: lactobacillus rhamnosus 10,000 MMU CELLS/CAPSULE PO SCH ×2 (07:30→21:36)
[2017-11-29] MEDS: amiodarone 200mg tablet PO SCH ×2 (07:30→20:00)
[2017-11-29] MEDS: lisinopril 20mg tablet PO SCH (07:31)
[2017-11-29] MEDS: multivitamins, therapeutics tablet PO SCH (07:31)
[2017-11-29] MEDS: ezetimibe 10mg tablet PO SCH (07:34)
[2017-11-29] MEDS: triamterene/HCTZ 37.5/25mg tablet PO SCH (07:34)
[2017-11-29] MEDS: Dakins solution (1/4 strength) 473ml solution TP SCH ×2 (07:36→20:00)
[2017-11-29] MEDS: insulin Lispro (HumaLOG) vial - multi-dose SQ SCH ×2 (09:25→13:29)
[2017-11-29 11:51] VITALS: BP 126/71
[2017-11-29 20:00] VITALS: BP 144/68
[2017-11-29] MEDS ORDERED: warfarin 5mg tablet PO ONE (21:00)
[2017-11-29] MEDS: aspirin 81mg tablet.DR PO SCH (21:36)
[2017-11-29] MEDS: insulin glargine (Lantus) pen - multi-dose SQ SCH (21:45)
[2017-11-30] VITALS: BP 140/66
[2017-11-30] MEDS: piperacillin/tazo 3.375gm/50ml 50 ML IV SCH ×4 (02:05→21:17)
[2017-11-30] MEDS: vancomycin/NS 1 GM ADD-VANTAGE 250 ML X 1 DOSE IV SCH ×3 (04:41→21:17)
[2017-11-30 05:50] LABS: BASOPHILS # (AUTO) 0.1 X10'3 (0-0.2); BASOPHILS % (AUTO) 0.5 % (0-1); EOSINOPHILS # (AUTO) 0.5 X10'3 (0-0.9); EOSINOPHILS % (AUTO) 3.1 % (0-6); HEMATOCRIT 31.4 % (35.0-45.0); HEMOGLOBIN 10.9 g/dl (12.0-16.0); LYMPHOCYTES # (AUTO) 2.5 X10'3 (1.1-4.8); LYMPHOCYTES % (AUTO) 15.7 % (21-51); MEAN CORPUSCULAR HEMOGLOBIN 26.7 PG (27.0-31.0); MEAN CORPUSCULAR HGB CONC 34.5 % (33.0-36.5); MEAN CORPUSCULAR VOLUME 77.4 FL (78-98); MEAN PLATELET VOLUME 7.2 FL (7.4-10.4); MONOCYTES # (AUTO) 1.1 X10'3 (0-0.9); MONOCYTES % (AUTO) 6.9 % (2-12); NEUTROPHILS # (AUTO) 11.8 X10'3 (1.8-7.7); NEUTROPHILS % (AUTO) 73.8 % (42-75); PLATELET COUNT 405 X10'3 (140-440); PROTHROMBIN TIME 10.7 SECONDS (9.0-12.0); RED BLOOD COUNT 4.06 X10'6 (4.20-5.60)
[2017-11-30 05:59] LABS: ALANINE AMINOTRANSFERASE 15 U/L (12-78); ALBUMIN 1.9 G/DL (3.4-5.0); ALBUMIN/GLOBULIN RATIO 0.4 (1.1-1.5); ALKALINE PHOSPHATASE 61 IU/L (46-116); ANION GAP 9 (8-16); ASPARTATE AMINO TRANSFERASE 13 U/L (10-37); BILIRUBIN,TOTAL 0.3 MG/DL (0.1-1.0); BLOOD UREA NITROGEN 12 MG/DL (7-18); BUN/CREATININE RATIO 12.1 (6.6-38.0); CALCIUM 8.5 MG/DL (8.5-10.1); CHLORIDE 104 MMOL/L (99-107); CREATININE 0.99 MG/DL (0.40-0.90); GLUCOSE 108 MG/DL (70-104); MAGNESIUM 1.7 MG/DL (1.5-2.4); POTASSIUM 3.7 MMOL/L (3.5-5.1); SODIUM 141 MMOL/L (135-145); TOTAL CARBON DIOXIDE 27.8 MMOL/L (24-32); TOTAL PROTEIN 6.6 G/DL (6.4-8.2); eGFR 55 ML/MIN
[2017-11-30] MEDS: Dakins solution (1/4 strength) 473ml solution TP SCH ×2 (06:43→20:00)
[2017-11-30] MEDS: citalopram 20mg tablet PO SCH (07:00)
[2017-11-30] MEDS: lactobacillus rhamnosus 10,000 MMU CELLS/CAPSULE PO SCH ×2 (07:01→21:18)
[2017-11-30] MEDS: triamterene/HCTZ 37.5/25mg tablet PO SCH (07:01)
[2017-11-30] MEDS: lisinopril 20mg tablet PO SCH (07:01)
[2017-11-30] MEDS: amiodarone 200mg tablet PO SCH ×2 (07:01→21:18)
[2017-11-30] MEDS: multivitamins, therapeutics tablet PO SCH (07:01)
[2017-11-30] MEDS: ezetimibe 10mg tablet PO SCH (07:02)
[2017-11-30 07:15] VITALS: BP 145/70
[2017-11-30 08:27] LABS: BANDS% (MANUAL) 1 % (0-10); BASOPHILS % (MANUAL) 1 % (0-1); EOSINOPHILS % (MANUAL) 3 % (0-6); LYMPHOCYTES % (MANUAL) 17 % (21-51); METAMYLEOCYTES% (MANUAL) 2 % (0-0); MONOCYTES % (MANUAL) 1 % (2-12); NEUTROPHILS % (MANUAL) 75 % (42-75); PLATELET ESTIMATE NORMAL; TOTAL CELLS COUNTED 100
[2017-11-30] MEDS: insulin Lispro (HumaLOG) vial - multi-dose SQ SCH ×3 (09:30→19:37)
[2017-11-30 12:18] VITALS: BP 147/72
[2017-11-30 20:00] VITALS: BP 138/67
[2017-11-30] MEDS ORDERED: warfarin 5mg tablet PO ONE (21:00)
[2017-11-30] MEDS: aspirin 81mg tablet.DR PO SCH (21:18)
[2017-11-30] MEDS: insulin glargine (Lantus) pen - multi-dose SQ SCH (21:30)
[2017-12-01] VITALS: BP 145/67
[2017-12-01] MEDS: piperacillin/tazo 3.375gm/50ml 50 ML IV SCH ×4 (02:32→21:27)
[2017-12-01] MEDS ORDERED: VANCOMYCIN LEVEL IV NR (04:30)
[2017-12-01] MEDS: vancomycin/NS 1 GM ADD-VANTAGE 250 ML X 1 DOSE IV SCH ×2 (04:59→17:30)
[2017-12-01 05:26] LABS: BASOPHILS % (AUTO) 0.3 % (0-1); EOSINOPHILS # (AUTO) 0.4 X10'3 (0-0.9); EOSINOPHILS % (AUTO) 2.9 % (0-6); HEMATOCRIT 31.4 % (35.0-45.0); HEMOGLOBIN 10.6 g/dl (12.0-16.0); LYMPHOCYTES # (AUTO) 2.2 X10'3 (1.1-4.8); LYMPHOCYTES % (AUTO) 15.5 % (21-51); MEAN CORPUSCULAR HEMOGLOBIN 26.3 PG (27.0-31.0); MEAN CORPUSCULAR HGB CONC 33.6 % (33.0-36.5); MEAN CORPUSCULAR VOLUME 78.3 FL (78-98); MEAN PLATELET VOLUME 6.9 FL (7.4-10.4); MONOCYTES # (AUTO) 0.9 X10'3 (0-0.9); MONOCYTES % (AUTO) 6.5 % (2-12); NEUTROPHILS # (AUTO) 10.9 X10'3 (1.8-7.7); NEUTROPHILS % (AUTO) 74.8 % (42-75); PLATELET COUNT 408 X10'3 (140-440); RED BLOOD COUNT 4.02 X10'6 (4.20-5.60); WHITE BLOOD COUNT 14.5 X10'3 (4.5-11.0)
[2017-12-01 05:40] LABS: INR 1.1 INR; PROTHROMBIN TIME 11.1 SECONDS (9.0-12.0)
[2017-12-01 05:48] LABS: ALANINE AMINOTRANSFERASE 14 U/L (12-78); ALBUMIN 1.9 G/DL (3.4-5.0); ALBUMIN/GLOBULIN RATIO 0.4 (1.1-1.5); ALKALINE PHOSPHATASE 55 IU/L (46-116); ANION GAP 6 (8-16); ASPARTATE AMINO TRANSFERASE 14 U/L (10-37); BILIRUBIN,TOTAL 0.3 MG/DL (0.1-1.0); BLOOD UREA NITROGEN 12 MG/DL (7-18); BUN/CREATININE RATIO 11.4 (6.6-38.0); CALCIUM 8.7 MG/DL (8.5-10.1); CHLORIDE 105 MMOL/L (99-107); CREATININE 1.05 MG/DL (0.40-0.90); GLUCOSE 112 MG/DL (70-104); POTASSIUM 4.1 MMOL/L (3.5-5.1); SODIUM 140 MMOL/L (135-145); TOTAL CARBON DIOXIDE 28.9 MMOL/L (24-32); TOTAL PROTEIN 6.5 G/DL (6.4-8.2); eGFR 52 ML/MIN
[2017-12-01 06:33] LABS: VANCOMYCIN,TROUGH 24.4 UG/ML (6.0-14.0)
[2017-12-01 07:00] VITALS: BP 118/68
[2017-12-01] MEDS: Dakins solution (1/4 strength) 473ml solution TP SCH ×2 (08:00→20:00)
[2017-12-01] MEDS: lisinopril 20mg tablet PO SCH (10:08)
[2017-12-01] MEDS: citalopram 20mg tablet PO SCH (10:09)
[2017-12-01] MEDS: lactobacillus rhamnosus 10,000 MMU CELLS/CAPSULE PO SCH ×2 (10:09→21:31)
[2017-12-01] MEDS: ezetimibe 10mg tablet PO SCH (10:09)
[2017-12-01] MEDS: amiodarone 200mg tablet PO SCH ×2 (10:09→21:31)
[2017-12-01] MEDS: multivitamins, therapeutics tablet PO SCH (10:09)
[2017-12-01] MEDS: triamterene/HCTZ 37.5/25mg tablet PO SCH (10:09)
[2017-12-01 11:00] VITALS: BP 130/63
[2017-12-01] MEDS: insulin Lispro (HumaLOG) vial - multi-dose SQ SCH ×2 (14:26→21:17)
[2017-12-01 20:00] VITALS: BP 139/68
[2017-12-01] MEDS ORDERED: warfarin 7.5mg tablet PO ONE (21:00)
[2017-12-01] MEDS: insulin glargine (Lantus) pen - multi-dose SQ SCH (21:18)
[2017-12-01] MEDS: aspirin 81mg tablet.DR PO SCH (21:27)
[2017-12-02] VITALS: BP 136/70
[2017-12-02] MEDS: piperacillin/tazo 3.375gm/50ml 50 ML IV SCH ×4 (03:08→21:34)
[2017-12-02] MEDS: vancomycin/NS 1 GM ADD-VANTAGE 250 ML X 1 DOSE IV SCH ×2 (05:18→17:31)
[2017-12-02 05:54] LABS: INR 1.2 INR; PROTHROMBIN TIME 12.6 SECONDS (9.0-12.0)
[2017-12-02 06:00] LABS: BASOPHILS # (AUTO) 0.1 X10'3 (0-0.2); BASOPHILS % (AUTO) 0.5 % (0-1); EOSINOPHILS # (AUTO) 0.5 X10'3 (0-0.9); EOSINOPHILS % (AUTO) 2.9 % (0-6); HEMATOCRIT 30.1 % (35.0-45.0); HEMOGLOBIN 10.1 g/dl (12.0-16.0); LYMPHOCYTES % (AUTO) 11.8 % (21-51); MEAN CORPUSCULAR HEMOGLOBIN 26.3 PG (27.0-31.0); MEAN CORPUSCULAR HGB CONC 33.5 % (33.0-36.5); MEAN CORPUSCULAR VOLUME 78.5 FL (78-98); MEAN PLATELET VOLUME 7.4 FL (7.4-10.4); MONOCYTES # (AUTO) 1.2 X10'3 (0-0.9); MONOCYTES % (AUTO) 7.1 % (2-12); NEUTROPHILS % (AUTO) 77.7 % (42-75); PLATELET COUNT 394 X10'3 (140-440); RED BLOOD COUNT 3.84 X10'6 (4.20-5.60); RED CELL DISTRIBUTION WIDTH 14.8 % (11.5-14.5); WHITE BLOOD COUNT 16.7 X10'3 (4.5-11.0)
[2017-12-02 06:06] LABS: ALANINE AMINOTRANSFERASE 15 U/L (12-78); ALBUMIN/GLOBULIN RATIO 0.4 (1.1-1.5); ALKALINE PHOSPHATASE 53 IU/L (46-116); ANION GAP 9 (8-16); ASPARTATE AMINO TRANSFERASE 14 U/L (10-37); BILIRUBIN,TOTAL 0.4 MG/DL (0.1-1.0); BLOOD UREA NITROGEN 13 MG/DL (7-18); CHLORIDE 103 MMOL/L (99-107); GLUCOSE 154 MG/DL (70-104); POTASSIUM 4.4 MMOL/L (3.5-5.1); SODIUM 139 MMOL/L (135-145); TOTAL CARBON DIOXIDE 27.1 MMOL/L (24-32); TOTAL PROTEIN 6.5 G/DL (6.4-8.2); TRIGLYCERIDES 111 MG/DL (20-135); eGFR 55 ML/MIN
[2017-12-02 08:09] VITALS: BP 126/65
[2017-12-02] MEDS: triamterene/HCTZ 37.5/25mg tablet PO SCH (08:22)
[2017-12-02] MEDS: citalopram 20mg tablet PO SCH (08:22)
[2017-12-02] MEDS: lisinopril 20mg tablet PO SCH (08:22)
[2017-12-02] MEDS: amiodarone 200mg tablet PO SCH ×2 (08:22→21:35)
[2017-12-02] MEDS: multivitamins, therapeutics tablet PO SCH (08:22)
[2017-12-02] MEDS: lactobacillus rhamnosus 10,000 MMU CELLS/CAPSULE PO SCH ×2 (08:22→21:35)
[2017-12-02] MEDS: ezetimibe 10mg tablet PO SCH (08:22)
[2017-12-02] MEDS: insulin Lispro (HumaLOG) vial - multi-dose SQ SCH ×3 (08:36→19:04)
[2017-12-02] MEDS: Dakins solution (1/4 strength) 473ml solution TP SCH (08:38)
[2017-12-02 11:00] VITALS: BP 161/74
[2017-12-02] MEDS ORDERED: VANCOMYCIN LEVEL IV NR (16:30)
[2017-12-02 20:00] VITALS: BP 134/65
[2017-12-02] MEDS ORDERED: warfarin 3mg tablet PO ONE (21:00)
[2017-12-02] MEDS ORDERED: diatr meglu/diatrizoate 30ml oral sol.-(3 dose) bottle PO SCH (21:00)
[2017-12-02] MEDS: insulin glargine (Lantus) pen - multi-dose SQ SCH (21:33)
[2017-12-02] MEDS: diatr meglu/diatrizoate 30ml oral sol.-(3 dose) bottle PO SCH (21:34)
[2017-12-02] MEDS: aspirin 81mg tablet.DR PO SCH (21:35)
[2017-12-03] VITALS: BP 142/73
[2017-12-03] MEDS: piperacillin/tazo 3.375gm/50ml 50 ML IV SCH ×4 (01:54→20:19)
[2017-12-03] MEDS: vancomycin/NS 1 GM ADD-VANTAGE 250 ML X 1 DOSE IV SCH ×2 (05:11→16:57)
[2017-12-03 06:19] LABS: INR 1.7 INR; PROTHROMBIN TIME 17.6 SECONDS (9.0-12.0)
[2017-12-03 07:30] VITALS: BP 132/63
[2017-12-03] MEDS: citalopram 20mg tablet PO SCH (07:54)
[2017-12-03] MEDS: diatr meglu/diatrizoate 30ml oral sol.-(3 dose) bottle PO SCH ×2 (07:54→10:34)
[2017-12-03] MEDS: amiodarone 200mg tablet PO SCH ×2 (07:55→20:28)
[2017-12-03] MEDS: multivitamins, therapeutics tablet PO SCH (07:55)
[2017-12-03] MEDS: lactobacillus rhamnosus 10,000 MMU CELLS/CAPSULE PO SCH ×2 (07:55→20:28)
[2017-12-03] MEDS: triamterene/HCTZ 37.5/25mg tablet PO SCH (07:55)
[2017-12-03] MEDS: lisinopril 20mg tablet PO SCH (07:55)
[2017-12-03] MEDS: ezetimibe 10mg tablet PO SCH (07:56)
[2017-12-03] MEDS: insulin Lispro (HumaLOG) vial - multi-dose SQ SCH ×3 (08:18→20:04)
[2017-12-03] MEDS ORDERED: iohexol 300mg/ml 100ml inj. ONE (09:58)
[2017-12-03 10:35] LABS: BASOPHILS % (AUTO) 0.1 % (0-1); EOSINOPHILS # (AUTO) 0.5 X10'3 (0-0.9); EOSINOPHILS % (AUTO) 3.2 % (0-6); LYMPHOCYTES # (AUTO) 2.3 X10'3 (1.1-4.8); LYMPHOCYTES % (AUTO) 15.1 % (21-51); MEAN CORPUSCULAR HEMOGLOBIN 26.2 PG (27.0-31.0); MEAN CORPUSCULAR HGB CONC 33.4 % (33.0-36.5); MEAN CORPUSCULAR VOLUME 78.6 FL (78-98); MEAN PLATELET VOLUME 6.9 FL (7.4-10.4); MONOCYTES # (AUTO) 0.9 X10'3 (0-0.9); MONOCYTES % (AUTO) 6.3 % (2-12); NEUTROPHILS # (AUTO) 11.3 X10'3 (1.8-7.7); NEUTROPHILS % (AUTO) 75.3 % (42-75); PLATELET COUNT 374 X10'3 (140-440); RED BLOOD COUNT 3.43 X10'6 (4.20-5.60); RED CELL DISTRIBUTION WIDTH 15.5 % (11.5-14.5)
[2017-12-03 10:43] LABS: ANION GAP 7 (8-16); BLOOD UREA NITROGEN 12 MG/DL (7-18); BUN/CREATININE RATIO 11.2 (6.6-38.0); CALCIUM 8.9 MG/DL (8.5-10.1); CHLORIDE 102 MMOL/L (99-107); CREATININE 1.07 MG/DL (0.40-0.90); GLUCOSE 151 MG/DL (70-104); POTASSIUM 4.7 MMOL/L (3.5-5.1); SODIUM 136 MMOL/L (135-145); TOTAL CARBON DIOXIDE 27.5 MMOL/L (24-32); eGFR 51 ML/MIN
[2017-12-03 11:30] VITALS: BP 150/69
[2017-12-03 20:00] VITALS: BP 134/61
[2017-12-03] MEDS: aspirin 81mg tablet.DR PO SCH (20:28)
[2017-12-03] MEDS ORDERED: warfarin 4mg tablet PO ONE (21:00)
[2017-12-03] MEDS: insulin glargine (Lantus) pen - multi-dose SQ SCH (22:27)
[2017-12-04] VITALS: BP 123/59
[2017-12-04] MEDS: piperacillin/tazo 3.375gm/50ml 50 ML IV SCH ×4 (03:32→20:23)
[2017-12-04 05:22] LABS: BASOPHILS # (AUTO) 0.1 X10'3 (0-0.2); BASOPHILS % (AUTO) 0.5 % (0-1); EOSINOPHILS # (AUTO) 0.5 X10'3 (0-0.9); EOSINOPHILS % (AUTO) 2.5 % (0-6); HEMATOCRIT 22.9 % (35.0-45.0); HEMOGLOBIN 7.8 g/dl (12.0-16.0); LYMPHOCYTES # (AUTO) 2.1 X10'3 (1.1-4.8); LYMPHOCYTES % (AUTO) 10.8 % (21-51); MEAN CORPUSCULAR HEMOGLOBIN 26.7 PG (27.0-31.0); MEAN CORPUSCULAR VOLUME 78.5 FL (78-98); MEAN PLATELET VOLUME 7.2 FL (7.4-10.4); MONOCYTES # (AUTO) 0.9 X10'3 (0-0.9); MONOCYTES % (AUTO) 4.6 % (2-12); NEUTROPHILS # (AUTO) 15.8 X10'3 (1.8-7.7); NEUTROPHILS % (AUTO) 81.6 % (42-75); PLATELET COUNT 347 X10'3 (140-440); RED BLOOD COUNT 2.92 X10'6 (4.20-5.60); RED CELL DISTRIBUTION WIDTH 15.4 % (11.5-14.5); WHITE BLOOD COUNT 19.4 X10'3 (4.5-11.0)
[2017-12-04] MEDS: vancomycin/NS 1 GM ADD-VANTAGE 250 ML X 1 DOSE IV SCH ×2 (05:22→17:52)
[2017-12-04 05:35] LABS: INR 2.5 INR; PROTHROMBIN TIME 25.5 SECONDS (9.0-12.0)
[2017-12-04 06:20] LABS: ANION GAP 7 (8-16); BLOOD UREA NITROGEN 13 MG/DL (7-18); BUN/CREATININE RATIO 12.3 (6.6-38.0); CALCIUM 8.7 MG/DL (8.5-10.1); CHLORIDE 101 MMOL/L (99-107); CREATININE 1.06 MG/DL (0.40-0.90); GLUCOSE 164 MG/DL (70-104); POTASSIUM 4.6 MMOL/L (3.5-5.1); SODIUM 136 MMOL/L (135-145); TOTAL CARBON DIOXIDE 28.1 MMOL/L (24-32); eGFR 51 ML/MIN
[2017-12-04 07:00] VITALS: BP 113/61
[2017-12-04] MEDS: amiodarone 200mg tablet PO SCH ×2 (08:03→20:20)
[2017-12-04] MEDS: citalopram 20mg tablet PO SCH (08:03)
[2017-12-04] MEDS: triamterene/HCTZ 37.5/25mg tablet PO SCH (08:03)
[2017-12-04] MEDS: ezetimibe 10mg tablet PO SCH (08:03)
[2017-12-04] MEDS: lactobacillus rhamnosus 10,000 MMU CELLS/CAPSULE PO SCH ×2 (08:03→20:19)
[2017-12-04] MEDS: multivitamins, therapeutics tablet PO SCH (08:03)
[2017-12-04] MEDS: lisinopril 20mg tablet PO SCH (08:04)
[2017-12-04] MEDS: insulin Lispro (HumaLOG) vial - multi-dose SQ SCH ×3 (09:15→19:27)
[2017-12-04 17:57] LABS: HEMOGLOBIN 7.3 g/dl (12.0-16.0); MEAN CORPUSCULAR HEMOGLOBIN 26.5 PG (27.0-31.0); MEAN CORPUSCULAR HGB CONC 33.6 % (33.0-36.5); MEAN CORPUSCULAR VOLUME 79.1 FL (78-98); MEAN PLATELET VOLUME 7.1 FL (7.4-10.4); PLATELET COUNT 373 X10'3 (140-440); RED BLOOD COUNT 2.74 X10'6 (4.20-5.60); RED CELL DISTRIBUTION WIDTH 16.2 % (11.5-14.5); WHITE BLOOD COUNT 18.3 X10'3 (4.5-11.0)
[2017-12-04 18:06] LABS: HEMATOCRIT 21.7 % (35.0-45.0)
[2017-12-04] MEDS ORDERED: diphenhydrAMINE 25mg capsule PO ONE (19:55)
[2017-12-04] MEDS ORDERED: acetaminophen 325mg tablet PO ONE (19:55)
[2017-12-04 20:00] VITALS: BP 118/51
[2017-12-04] MEDS: aspirin 81mg tablet.DR PO SCH (20:20)
[2017-12-04] MEDS: ferrous sulfate 325mg tablet PO SCH (20:20)
[2017-12-04] MEDS ORDERED: warfarin 2.5mg tablet PO ONE (21:00)
[2017-12-04] MEDS: insulin glargine (Lantus) pen - multi-dose SQ SCH (21:54)
[2017-12-04 23:00] VITALS: BP 130/60
[2017-12-04 23:25] VITALS: BP 140/69
[2017-12-05] VITALS (10 sets, daily range): BP systolic 112–137; BP diastolic 52–78
[2017-12-05] MEDS: piperacillin/tazo 3.375gm/50ml 50 ML IV SCH ×3 (02:38→14:06)
[2017-12-05] MEDS: vancomycin/NS 1 GM ADD-VANTAGE 250 ML X 1 DOSE IV SCH ×2 (06:34→17:29)
[2017-12-05] MEDS: ezetimibe 10mg tablet PO SCH (07:53)
[2017-12-05] MEDS: lactobacillus rhamnosus 10,000 MMU CELLS/CAPSULE PO SCH (07:53)
[2017-12-05] MEDS: triamterene/HCTZ 37.5/25mg tablet PO SCH (07:53)
[2017-12-05] MEDS: amiodarone 200mg tablet PO SCH (07:53)
[2017-12-05] MEDS: ferrous sulfate 325mg tablet PO SCH (07:53)
[2017-12-05] MEDS: lisinopril 20mg tablet PO SCH (07:53)
[2017-12-05] MEDS: citalopram 20mg tablet PO SCH (07:53)
[2017-12-05] MEDS: multivitamins, therapeutics tablet PO SCH (07:53)
[2017-12-05 08:34] LABS: BASOPHILS % (AUTO) 0.2 % (0-1); EOSINOPHILS # (AUTO) 0.5 X10'3 (0-0.9); HEMATOCRIT 26.1 % (35.0-45.0); HEMOGLOBIN 8.8 g/dl (12.0-16.0); LYMPHOCYTES # (AUTO) 2.7 X10'3 (1.1-4.8); LYMPHOCYTES % (AUTO) 15.6 % (21-51); MEAN CORPUSCULAR HGB CONC 33.9 % (33.0-36.5); MEAN CORPUSCULAR VOLUME 82.5 FL (78-98); MEAN PLATELET VOLUME 6.8 FL (7.4-10.4); MONOCYTES # (AUTO) 1.2 X10'3 (0-0.9); NEUTROPHILS # (AUTO) 12.9 X10'3 (1.8-7.7); NEUTROPHILS % (AUTO) 74.2 % (42-75); PLATELET COUNT 333 X10'3 (140-440); RED BLOOD COUNT 3.16 X10'6 (4.20-5.60); RED CELL DISTRIBUTION WIDTH 17.6 % (11.5-14.5); WHITE BLOOD COUNT 17.4 X10'3 (4.5-11.0)
[2017-12-05 08:43] LABS: INR 2.2 INR; PROTHROMBIN TIME 21.9 SECONDS (9.0-12.0)
[2017-12-05 08:49] LABS: ALBUMIN 2.2 G/DL (3.4-5.0); ANION GAP 7 (8-16); BLOOD UREA NITROGEN 11 MG/DL (7-18); BUN/CREATININE RATIO 9.6 (6.6-38.0); CALCIUM 8.9 MG/DL (8.5-10.1); CHLORIDE 103 MMOL/L (99-107); CREATININE 1.15 MG/DL (0.40-0.90); GLUCOSE 136 MG/DL (70-104); POTASSIUM 4.1 MMOL/L (3.5-5.1); SODIUM 138 MMOL/L (135-145); TOTAL CARBON DIOXIDE 28.4 MMOL/L (24-32); eGFR 47 ML/MIN
[2017-12-05] MEDS: insulin Lispro (HumaLOG) vial - multi-dose SQ SCH ×2 (10:27→13:56)
[2017-12-05] MEDS ORDERED: ZOF4I IV (12:42)
[2017-12-05] MEDS ORDERED: HYDR-569 PO (12:42)
[2017-12-05] MEDS ORDERED: AMIO200T57 PO (12:42)
== END 2017-12-05 19:19 | DRG 853 ==
LOC: ER 08:50 → ED HOLD 13:39 → MED 3N 15:40 → CICU 2S 11-23 23:40 → SUR 3N 11-27 17:53
PROVIDERS: ADMIT Family Medicine; ATTEND Family Medicine
PROC: 0JB90ZZ Excision of Buttock Subcutaneous Tissue and Fascia, Open Approach (ICD-10-PCS; 2017-11-23)
PROC: BW2G1ZZ Computerized Tomography (CT Scan) of Pelvic Region using Low Osmolar Contrast (ICD-10-PCS; 2017-11-23)
PROC: 0YB50ZZ Excision of Right Inguinal Region, Open Approach (ICD-10-PCS; 2017-11-23)
PROC: 0JBB0ZZ Excision of Perineum Subcutaneous Tissue and Fascia, Open Approach (ICD-10-PCS; 2017-11-23)
PROC: 5A09357 Assistance with Respiratory Ventilation, Less than 24 Consecutive Hours, Continuous Positive Airway Pressure (ICD-10-PCS; principal; 2017-11-23 21:20)
PROC: B32T1ZZ Computerized Tomography (CT Scan) of Left Pulmonary Artery using Low Osmolar Contrast (ICD-10-PCS; 2017-11-24)
PROC: B3201ZZ Computerized Tomography (CT Scan) of Thoracic Aorta using Low Osmolar Contrast (ICD-10-PCS; 2017-11-24)
PROC: B32S1ZZ Computerized Tomography (CT Scan) of Right Pulmonary Artery using Low Osmolar Contrast (ICD-10-PCS; 2017-11-24)
PROC: B4201ZZ Computerized Tomography (CT Scan) of Abdominal Aorta using Low Osmolar Contrast (ICD-10-PCS; 2017-11-24)
PROC: 0YB50ZZ Excision of Right Inguinal Region, Open Approach (ICD-10-PCS; 2017-11-25)
PROC: BW211ZZ Computerized Tomography (CT Scan) of Abdomen and Pelvis using Low Osmolar Contrast (ICD-10-PCS; 2017-12-03)
PROC: 30233N1 Transfusion of Nonautologous Red Blood Cells into Peripheral Vein, Percutaneous Approach (ICD-10-PCS; 2017-12-04)
PROC: 30233N1 Transfusion of Nonautologous Red Blood Cells into Peripheral Vein, Percutaneous Approach (ICD-10-PCS; 2017-12-05)
DX: A41.4 Sepsis due to anaerobes (principal); M72.6 Necrotizing fasciitis; E66.01 Morbid (severe) obesity due to excess calories; I48.0 Paroxysmal atrial fibrillation; E11.9 Type 2 diabetes mellitus without complications; D64.9 Anemia, unspecified; L03.315 Cellulitis of perineum; Z68.42 Body mass index [BMI] 45.0-49.9, adult; N39.0 Urinary tract infection, site not specified; L02.214 Cutaneous abscess of groin; I82.612 Acute embolism and thrombosis of superficial veins of left upper extremity; F32.9 Major depressive disorder, single episode, unspecified; M79.3 Panniculitis, unspecified; E87.6 Hypokalemia; I10 Essential (primary) hypertension; E78.5 Hyperlipidemia, unspecified; Z90.49 Acquired absence of other specified parts of digestive tract; Z79.4 Long term (current) use of insulin; Z79.82 Long term (current) use of aspirin; Z79.899 Other long term (current) drug therapy; Z88.8 Allergy status to other drugs, medicaments and biological substances
CPT/HCPCS: 36415; 36600; 71045; 71275; 72192; 72193; 74174; 74177; 80048; 80053; 80202; 81001; 82803; 82948; 83036; 83605; 83735; 84100; 84132; 84145; 84478; 85018; 85025; 85027; 85610; 85730; 86885; 86900; 86901; 86920; 87040; 87070; 87075; 87076; 87077; 87102; 87185; 88304; 90715; 93005; 93306; 93971; 94640; 94660; 94760; 96361; 96365; 99285; A4315; A4333; A4344; A4649; A6213; A6253; A6257; A6258; A6446; A6449; A7000; A7015; J0282; J0330; J0690; J0692; J1644; J1650; J1815; J2001; J2175; J2250; J2310; J2405; J2543; J2704; J3010; J3370; J3490; J7030; J7120; P9016; Q0163; Q9963; Q9967